=== PATIENT | male | born 1990 | race Two or more races ===

== ENCOUNTER 2018-03-16 07:02 | Emergency (ER) | payer BC, OTHER ==
[2018-03-16 07:25] VITALS: BP 122/76; PULSE 78; TEMP 97.8; BMI 25.4
--- NOTE | 2018-03-16 08:08 | PDOC ---
History of Present Illness - General Chief Complaint: Vomiting/Diarrhea Stated Complaint: ABD PAIN Time Seen by Provider: 03/16/18 07:59 - History of Present Illness Initial Comments: 03/16/18 08:00 27 yo M with h/o asthma who p/w loose watery stools, crampy abdominal pain, and nausea/vomiting. Patient reports crampy abdominal pain at rest x 2 days, multiple episode of non bilious, non bloody emesis x 2 days, and multiple loose watery stools x 2 days following return from [place] 03/13/18. Does not know how many loose stools, or vomiting per day, but estimates over 5/day. No BPR, but with slight streak of blood in vomit this AM, which prompted ED visit.In [place] x 6 days. States that he drank filtered/bottled water, but ice may have been contaminated while in [place]. Patient denies F,C, CP, SOB, urinary complaints, constipation, lightheadedness , weakness, sensory changes. PMHx: as noted above. Denies h/o abdominal surgery. ROS: as noted SHx: Tobacco use 1PPD 13 years, Social Etoh. Denies IVDA. Allergies: NKDA Past History - Past Medical History Allergies/Adverse Reactions: Allergies Allergy/AdvReac Type Severity Reaction Status Date / Time No Known Allergies Allergy Verified 03/16/18 07:09 Home Medications: Ambulatory Orders Ondansetron HCl [Zofran] 4 mg PO PRN PRN #21 tablet 03/16/18 Asthma: Yes - Suicide/Smoking/Psychosocial Hx Smoking Status: Yes Smoking History: Current every day smoker Have you smoked in the past 12 months: Yes Number of Cigarettes Smoked Daily: 20 Information on smoking cessation initiated: Yes 'Breaking Loose' booklet given: 04/16/14 Hx Alcohol Use: Yes (social) Drug/Substance Use Hx: No Substance Use Type: None Review of Systems - Review of Systems Comments:: 03/16/18 08:08 GENERAL/CONSTITUTIONAL: No fever or chills. No weakness. HEAD, EYES, EARS, NOSE AND THROAT: No change in vision. No ear pain or discharge. No sore throat. CARDIOVASCULAR: No chest pain or shortness of breath RESPIRATORY: No cough, wheezing, or hemoptysis. GASTROINTESTINAL: No nausea, vomiting, diarrhea or constipation. GENITOURINARY: No dysuria, frequency, or change in urination. MUSCULOSKELETAL: No joint or muscle swelling or pain. No neck or back pain. SKIN: No rash NEUROLOGIC: No headache, vertigo, loss of consciousness, or change in strength/ sensation. ENDOCRINE: No increased thirst. No abnormal weight change HEMATOLOGIC/LYMPHATIC: No anemia, easy bleeding, or history of blood clots. ALLERGIC/IMMUNOLOGIC: No hives or skin allergy. *Physical Exam - Vital Signs Last Vital Signs Temp Pulse Resp BP Pulse Ox 97.8 F 78 20 122/76 99 03/16/18 07:05 03/16/18 07:05 03/16/18 07:05 03/16/18 07:05 03/16/18 07:05 - Physical Exam Comments: 03/16/18 08:08 GENERAL: Awake, alert, and fully oriented, in no acute distress HEAD: No signs of trauma, normocephalic, atraumatic EYES: PERRLA, EOMI, sclera anicteric, conjunctiva clear ENT: Auricles normal inspection, hearing grossly normal, nares patent, oropharynx clear without exudates. Moist mucosa NECK: Normal ROM, supple, no lymphadenopathy, JVD, or masses LUNGS: No distress, speaks full sentences, clear to auscultation bilaterally HEART: Regular rate and rhythm, normal S1 and S2, no murmurs, rubs or gallops, peripheral pulses normal and equal bilaterally. ABDOMEN: Soft, nontender, normoactive bowel sounds. No guarding, no rebound. No masses EXTREMITIES : Normal inspection, Normal range of motion, no edema. No clubbing or cyanosis. NEUROLOGICAL: Cranial nerves II through XII grossly intact. Normal speech, normal gait, no focal sensorimotor deficits SKIN: Warm, Dry, normal turgor, no rashes or lesions noted ED Treatment Course - LABORATORY CBC & Chemistry Diagram: 03/16/18 08:31 03/16/18 08:31 Medical Decision Making - Medical Decision Making 03/16/18 08:24 27 yo M with h/o asthma who p/w loose watery stools, crampy abdominal pain, and nausea/vomiting. VSS, AF. Patient without fever, bloody stools, and non ill appearing. S/S most likely d/t travelers diarrhea/uncomplicated. Self limiting. Non tender abdomen. Low suspicion appendicitis, mesenteric ischemia, diverticulitis. ED Course: CBC,CMP, UA Pepcid, Zofran, NS Blood culture, stool culture. 03/16/18 09:34 CBC,CMP: Unremarkable 03/16/18 10:58 Patient tolerating PO intake. Patient stable for d/c with return precautions. Advised to f/u with pmd. *DC/Admit/Observation/Transfer Diagnosis at time of Disposition: Traveler's diarrhea - Discharge Dispostion Disposition: HOME Condition at time of disposition: Stable Decision to Admit order: No - Prescriptions Prescriptions: Ondansetron HCl [Zofran] 4 mg PO PRN PRN #21 tablet PRN Reason: Nausea And/Or Vomiting - Referrals Referrals: Steffanie Vu MD [Primary Care Provider] - - Patient Instructions Printed Discharge Instructions: DI for Diarrhea and Traveler's Diarrhea -- Adult Additional Instructions: Please return to the emergency department with any new or worsening symptoms or concerns. Please follow up with your primary care physician within 72 hours. - Post Discharge Activity Forms/Work/School Notes: Back to Work - Attestations Physician Attestion: 03/16/18 08:09 I attest to the information provided in this note.
[2018-03-16] MEDS ORDERED: LOPERAMIDE HCL 2 MG CAPSULE PO ONE (08:19)
[2018-03-16] MEDS ORDERED: SODIUM CHLORIDE 1,000 ML IV STA (08:19)
--- NOTE | 2018-03-16 08:22 | PDOC ---
Attending Attestation - HPI HPI: 03/16/18 10:26 The patient is a 27 year old male with a significant past medical history of asthma who presents to the emergency department with complaint of two days of crampy abdominal pain, nausea with vomiting, and loose watery stools since returning from [place] on 03/13/18. The patient is unsure how many loose stools were passed, or vomiting per day, but estimates over 5x a day. Patient denies fevers, chills, rashes, urinary complaints, constipation, lightheadedness, weakness, sensory changes. Allergies: NKDA - Physicial Exam PE: 03/16/18 10:30 ROS: A complete review of 10 out of 10 review of systems is taken and is negative apart from what is previously mentioned below and in the HPI. Vitals: Triage vital signs reviewed General Appearance: No acute distress, well nourished, well developed Head: Atraumatic Eyes: Pupils equal reactive round, extraocular movement intact Neck: Supple; No nuchal rigidity Chest Wall: Nontender Cardiac: Regular rate and rhythm, no murmurs, no rubs, no gallops Lungs: Clear to auscultation bilateral, good air movement bilaterally Abdomen: +Mild diffuse tenderness no rebound no guardong. Soft, nondistended, normal bowel sounds, Genitourinary: Rectal: Exam deferred Extremities: Full range of motion to all extremities, no cyanosis, clubbing, or edema Skin: Warm and dry, no rashes or lesions, no rash, no petechiae Psych: Normal mood, normal affect - Medical Decision Making 03/16/18 10:31 Documentation prepared by Kena Souza, acting as medical supply technician for Stepan Gamboa MD <Kena Souza - Last Filed: 03/16/18 10:26> - Resident Resident Name: Wili Cutler - ED Attending Attestation I have performed the following: I have examined & evaluated the patient, The case was reviewed & discussed with the resident, I agree w/resident's findings & plan, Exceptions are as noted - Medical Decision Making 03/16/18 09:56 27 years old with several day history of nausea vomiting diarrhea as an travel to [place]. Well-appearing sore nonlocalizing abdominal examination history and examination consistent with viral gastroenteritis versus tablets diarrhea. We' ll check stool culture, blood culture, labs hydrate Zofran Pepcid observe and reassess. Reevaluation: Patient feels much better now tolerating fluids by mouth. No fever no white count no bloody bowel movements no indication for antibiotics traveler's diarrhea at this time History examination were consistent with viral gastroenteritis given nausea vomiting and diarrhea. We'll discharge patient on Zofran 12 hours fluid only then progression to bland diet Findings, the need for follow-up, strict return instructions discussed patient. <Stepan Gamboa - Last Filed: 03/16/18 11:25>
[2018-03-16] MEDS ORDERED: ONDANSETRON 4 MG/2 ML VIAL IVPUSH ONE (08:27)
[2018-03-16] MEDS ORDERED: LOPERAMIDE HCL 2 MG CAPSULE ONE (08:34)
[2018-03-16] MEDS ORDERED: ONDANSETRON 4 MG/2 ML VIAL ONE (08:34)
[2018-03-16] MEDS ORDERED: FAMOTIDINE 20 MG/50 ML IVPB 20 MG/50 ML MG IVPB ONE ×2 (08:38→08:42)
[2018-03-16 08:41] LABS: BASO % 0.4 % (0-2.0); EOS % 2.4 % (0-4.5); HEMATOCRIT 42.5 % (35.4-49); HEMOGLOBIN 14.7 GM/dL (11.7-16.9); LYMPH % 17.2 % (8-40); MCH 30.3 pg (25.7-33.7); MCHC 34.6 g/dl (32.0-35.9); MEAN CELL VOLUME 87.4 fl (80-96); MEAN PLT VOLUME 8.2 fl (7.5-11.1); MONO % 14.6 % (3.8-10.2); NEUT % 65.4 % (42.8-82.8); PLATELET COUNT 214 K/MM3 (134-434); RBC 4.86 M/mm3 (4.00-5.60); RDW 13.2 % (11.9-15.9); WHITE BLOOD COUNT 8.8 K/mm3 (4.0-10.0)
[2018-03-16 09:07] LABS: ALBUMIN 3.9 g/dl (3.4-5.0); ALK PHOS 52 U/L (45-117); ANION GAP 5 (8-16); BILIRUBIN,TOTAL 0.2 mg/dL (0.2-1.0); BLOOD UREA NITROGEN 14 mg/dL (7-18); CALCIUM 8.5 mg/dL (8.5-10.1); CHLORIDE 107 mmol/L (98-107); CO2 28 mmol/L (21-32); CREATININE 0.9 mg/dL (0.7-1.3); GLUCOSE,RANDOM 101 mg/dL (74-106); POTASSIUM 4.2 mmol/L (3.5-5.1); SGOT/AST 16 U/L (15-37); SGPT/ALT 23 U/L (12-78); SODIUM 140 mmol/L (136-145); TOT PROT 6.5 g/dl (6.4-8.2)
== END 2018-03-16 11:44 | disposition home or self-care (01) ==
LOC: JER 07:02
PROC: 3E0337Z Introduction of Electrolytic and Water Balance Substance into Peripheral Vein, Percutaneous Approach (ICD-10-PCS; principal; 2018-03-16)
PROC: 3E033GC Introduction of Other Therapeutic Substance into Peripheral Vein, Percutaneous Approach (ICD-10-PCS; 2018-03-16)
PROC: 3E033GC Introduction of Other Therapeutic Substance into Peripheral Vein, Percutaneous Approach (ICD-10-PCS; 2018-03-16)
DX: A09 Infectious gastroenteritis and colitis, unspecified (principal)
CPT/HCPCS: 36415; 80053; 85025; 87040; 99281-25; J7030